=== PATIENT | male | born 1970 | race African-American/Black ===

== ENCOUNTER 2023-08-26 13:58 | Inpatient (IN) | payer MEDICARE, OTHER ==
[~2023-08-26] VITALS: Ht 177.8 cm; Wt 81.6 kg
[2023-08-26] MEDS: IV NS 0.9% 1,000 ML BAG IV ONE (15:15)
[2023-08-26] MEDS ORDERED: HYDROMORPHONE 1 MG/1 ML DISP.SYRIN ONE ×2 (15:23→17:01)
[2023-08-26] MEDS ORDERED: diphenhydrAMINE HCL 50 MG/ML VIAL ONE (15:23)
[2023-08-26] MEDS: diphenhydrAMINE HCL 50 MG/ML VIAL IV ONE (15:28)
[2023-08-26] MEDS: HYDROMORPHONE 1 MG/1 ML DISP.SYRIN IV ONE ×2 (15:30→17:05)
[2023-08-26 15:49] LABS: BASOPHILS % (AUTO) 1.7 % (0.0-2.0); EOSINOPHILS # (AUTO) 0.2 K/uL (0.0-0.7); HEMATOCRIT 32 % (39-51); HEMOGLOBIN 10.2 g/dL (13.5-17.5); LYMPHOCYTES # (AUTO) 0.7 K/uL (0.8-4.8); LYMPHOCYTES % (AUTO) 25.6 % (20.0-44.0); MEAN CORPUSCULAR HEMOGLOBIN 31 PG (26.0-33.0); MEAN CORPUSCULAR HGB CONC 32 g/dl (31.0-36.0); MEAN CORPUSCULAR VOLUME 96 fL (80-96); MONOCYTES # (AUTO) 0.3 K/uL (0.1-1.30); MONOCYTES % (AUTO) 10.4 % (2.0-12.0); NEUTROPHILS # (AUTO) 1.5 K/uL (1.8-8.9); NEUTROPHILS % (AUTO) 55.3 % (43.0-81.0); PLATELET COUNT (AUTO) 74 K/uL (150-450); RED BLOOD CELL COUNT(AUTO) 3.32 MIL/uL (4.5-6.0); RED CELL DISTRIBUTION WIDTH 15.6 % (11.5-15.0); WHITE BLOOD COUNT (AUTO) 2.8 K/uL (4.3-11.0)
[2023-08-26 16:08] LABS: ALANINE AMINOTRANSFERASE 48 U/L (12-78); ALBUMIN 3.5 g/dL (3.4-5.0); ALKALINE PHOSPHATASE 116 U/L (46-116); ASPARTATE AMINOTRANSFERASE 73 U/L (15-37); BILIRUBIN,DIRECT 0.2 mg/dL (0.0-0.2); BILIRUBIN,TOTAL 0.6 mg/dL (0.2-1.0); CALCIUM, SERUM 6.6 mg/dL (8.5-10.1); CARBON DIOXIDE 27 mmol/L (21-32); CHLORIDE 103 mmol/L (98-107); CREATININE 5.3 mg/dL (0.6-1.3); LIPASE 7 U/L (16-77); POTASSIUM 4.5 mmol/L (3.5-5.1); SODIUM SERUM 138 mmol/L (136-145); TOTAL PROTEIN, SERUM 7.5 g/dL (6.4-8.2); UREA NITROGEN, BLOOD 36 mg/dL (7-18)
[2023-08-26 16:14] LABS: GLUCOSE 453 mg/dL (74-106)
[2023-08-26] MEDS: IV NS 0.9% 250 ML BAG IV ONE (16:58)
[2023-08-26] MEDS: ONDANSETRON HCL/PF 4 MG/2 ML VIAL IV ONE (17:00)
[2023-08-26 17:01] LABS: EOSINOPHILS % (MANUAL) 7 % (0-4); LYMPHOCYTES % (MANUAL) 26 % (16-48); MONOCYTES % (MANUAL) 8 % (0-11.0); NEUTROPHILS % (MANUAL) 59 (42-76); PLATELET ESTIMATE DECREASED
[2023-08-26] MEDS ORDERED: ONDANSETRON HCL/PF 4 MG/2 ML VIAL ONE (17:01)
[2023-08-26 17:02] LABS: ANISOCYTOSIS 1+
[2023-08-26] MEDS ORDERED: KETOROLAC TROMETHAMINE 15 MG/ML VIAL ONE (18:29)
[2023-08-26] MEDS: KETOROLAC TROMETHAMINE 15 MG/ML VIAL IV ONE (18:30)
[2023-08-26] MEDS ORDERED: AMLO-212 PO (18:34)
[2023-08-26] MEDS ORDERED: MINO10TA2 PO (18:34)
[2023-08-26] MEDS ORDERED: SILD20TA2 PO (18:34)
[2023-08-26] MEDS ORDERED: PANT40TA49 PO (18:34)
[2023-08-26] MEDS ORDERED: SEVE800T8 PO (18:34)
[2023-08-26] MEDS ORDERED: ASPI-1420 PO (18:34)
[2023-08-26] MEDS ORDERED: INSU100C4 SQ (18:34)
[2023-08-26] MEDS ORDERED: LABE300T2 PO (18:34)
[2023-08-26] MEDS ORDERED: ATOR40TA PO (18:34)
[2023-08-26] MEDS ORDERED: ALBU18HF2 IH (18:34)
[2023-08-26] MEDS ORDERED: INSU100I19 SQ (18:34)
[2023-08-26] MEDS ORDERED: CLOP75TA15 PO (18:35)
[2023-08-26] MEDS ORDERED: DOCU100C36 PO (18:35)
[2023-08-26] MEDS ORDERED: PANCRELIPASE PO (18:48)
[2023-08-26 20:00] VITALS: BP 160/78; TEMP 208.8; TEMP 98.2; O2SAT 94
[2023-08-26] MEDS ORDERED: ACETAMINOPHEN 325 MG TABLET PO PRN (20:30)
[2023-08-26] MEDS ORDERED: DEXTROSE 50%-WATER 50 ML DISP.SYRIN IV PRN (20:30)
[2023-08-26] MEDS ORDERED: TRAMADOL HCL 50 MG TABLET PO PRN (20:30)
[2023-08-26] MEDS ORDERED: LACTULOSE 10 G/15 ML UDC (PYXIS) PO PRN (20:30)
[2023-08-26] MEDS ORDERED: ONDANSETRON HCL/PF 4 MG/2 ML VIAL IVP PRN (20:30)
[2023-08-26] MEDS ORDERED: BISACODYL SUPP (10 MG) 10 MG/SUPP.RECT SUPP.RECT RC PRN (20:30)
[2023-08-26] MEDS ORDERED: SORBITOL SOLUTION 70% 30 ML SOLUTION PO SCH (21:00)
[2023-08-26] MEDS: SORBITOL SOLUTION 70% 30 ML SOLUTION PO ONE (22:09)
[2023-08-26] MEDS: HYDROMORPHONE 1 MG/1 ML DISP.SYRIN IV PRN (22:10)
[2023-08-26] MEDS: *INSULIN REGULAR(HUMULIN R)HUM 100 UNIT/ML VIAL SQ PRN (22:13)
[2023-08-26] MEDS: BLOOD SUGAR DIAGNOSTIC 1 EACH STRIP IN SCH (22:13)
[2023-08-27] VITALS: BP 160/78; TEMP 208.8; O2SAT 94
[2023-08-27] MEDS: diphenhydrAMINE HCL 25 MG CAPSULE PO ONE (01:56)
[2023-08-27] MEDS: diphenhydrAMINE HCL 50 MG/ML VIAL IV ONE (02:11)
[2023-08-27 04:00] VITALS: BP 174/82; TEMP 97.7; O2SAT 100
[2023-08-27] MEDS: hydrALAZINE HCL IV 20 MG VIAL IV PRN (04:11)
[2023-08-27 08:00] VITALS: BP 164/98; TEMP 98.2; O2SAT 100
[2023-08-27] MEDS: BISACODYL SUPP (10 MG) 10 MG/SUPP.RECT SUPP.RECT RC ONE (08:24)
[2023-08-27] MEDS: DOCUSATE SODIUM 100 MG CAPSULE PO SCH (08:24)
[2023-08-27] MEDS: INSULIN REGULAR, HUMAN 100 UNIT/ML 3 ML VIAL SQ PRN (08:25)
[2023-08-27 12:00] VITALS: BP 173/89; TEMP 97.5; O2SAT 100
[2023-08-27 16:00] VITALS: BP 175/91; TEMP 98.6; O2SAT 100
[2023-08-27] MEDS: diphenhydrAMINE HCL 25 MG CAPSULE PO PRN (16:01)
[2023-08-27 20:00] VITALS: BP 158/90; TEMP 98.6; O2SAT 100
[2023-08-27] MEDS: SENNOSIDES 8.6 MG TABLET PO SCH (22:46)
[2023-08-27] MEDS: DICYCLOMINE HCL 10 MG CAPSULE PO SCH (23:47)
[2023-08-28] VITALS: BP 152/92; TEMP 98; O2SAT 99
[2023-08-28] MEDS: HYDROMORPHONE 1 MG/1 ML DISP.SYRIN IV PRN (00:20)
[2023-08-28 04:00] VITALS: BP 148/90; TEMP 98.2; O2SAT 99
[2023-08-28 08:00] VITALS: BP 160/73; TEMP 98; O2SAT 99
[2023-08-28] MEDS ORDERED: NA PHOS,M-B/NA PHOS,DI-BA 1 EA ENEMA RC PRN (09:30)
[2023-08-28] MEDS ORDERED: BISACODYL SUPP (10 MG) 10 MG/SUPP.RECT SUPP.RECT RC PRN (09:30)
[2023-08-28 12:00] VITALS: BP 176/81; TEMP 98; O2SAT 99
[2023-08-28 16:00] VITALS: BP 185/81; TEMP 98; TEMP 98.1; O2SAT 99
[2023-08-28 18:24] LABS: HEMOGLOBIN 10.4 g/dL (13.5-17.5)
[2023-08-28 18:40] LABS: CALCIUM, SERUM 7.6 mg/dL (8.5-10.1); CREATININE 3.8 mg/dL (0.6-1.3); MAGNESIUM 1.6 mg/dL (1.8-2.4); PHOSPHORUS 5.3 mg/dL (2.5-4.9); POTASSIUM 3.3 mmol/L (3.5-5.1)
[2023-08-28] MEDS ORDERED: SEVELAMER CARBONATE 800 MG TABLET PO SCH (19:00)
[2023-08-28] MEDS ORDERED: SILDENAFIL CITRATE 20 MG TABLET PO SCH (19:00)
[2023-08-28] MEDS ORDERED: LABETALOL HCL (100MG) 100 MG TABLET PO SCH (19:00)
[2023-08-28 19:49] LABS: HEMATOCRIT 32 % (39-51); MEAN CORPUSCULAR HEMOGLOBIN 31 PG (26.0-33.0); MEAN CORPUSCULAR HGB CONC 33 g/dl (31.0-36.0); MEAN CORPUSCULAR VOLUME 95 fL (80-96); PLATELET COUNT (AUTO) 79 K/uL (150-450); RED BLOOD CELL COUNT(AUTO) 3.33 MIL/uL (4.5-6.0); RED CELL DISTRIBUTION WIDTH 14.8 % (11.5-15.0); WHITE BLOOD COUNT (AUTO) 3.3 K/uL (4.3-11.0)
[2023-08-28] MEDS ORDERED: MINOXIDIL (2.5MG) 2.5 MG TABLET PO SCH (21:00)
[2023-08-28 23:06] LABS: ANISOCYTOSIS 1+; BAND % (MANUAL) 1 % (0.0-5.0); EOSINOPHILS % (MANUAL) 5 % (0-4); LYMPHOCYTES % (MANUAL) 26 % (16-48); MONOCYTES % (MANUAL) 9 % (0-11.0); NEUTROPHILS % (MANUAL) 59 (42-76); PLATELET ESTIMATE DECREASED
[2023-08-28 23:07] LABS: ROULEAUX 1+
[2023-08-29] MEDS ORDERED: ATORVASTATIN 40 MG TABLET PO SCH (09:00)
[2023-08-29 12:07] LABS: HEPATITIS B SURFACE AB Non Reactive (.)
== END 2023-08-29 00:24 | disposition left against medical advice (07) | DRG 640 ==
LOC: ER 14:00 → TELE1 18:59
PROVIDERS: ADMIT Nurse Practitioner Acute Care; ATTEND Nurse Practitioner Acute Care
PROC: 5A1D70Z Performance of Urinary Filtration, Intermittent, Less than 6 Hours Per Day (ICD-10-PCS; principal; 2023-08-27)
DX: E87.70 Fluid overload, unspecified (principal); N18.6 End stage renal disease; D61.818 Other pancytopenia; K86.1 Other chronic pancreatitis; K86.2 Cyst of pancreas; K86.0 Alcohol-induced chronic pancreatitis; R18.8 Other ascites; I12.0 Hypertensive chronic kidney disease with stage 5 chronic kidney disease or end stage renal disease; E87.5 Hyperkalemia; I16.0 Hypertensive urgency; K59.09 Other constipation; E11.22 Type 2 diabetes mellitus with diabetic chronic kidney disease; E11.65 Type 2 diabetes mellitus with hyperglycemia; E78.5 Hyperlipidemia, unspecified; I25.10 Atherosclerotic heart disease of native coronary artery without angina pectoris; Z86.73 Personal history of transient ischemic attack (TIA), and cerebral infarction without residual deficits; D63.8 Anemia in other chronic diseases classified elsewhere; I25.2 Old myocardial infarction; Z79.4 Long term (current) use of insulin; Z95.5 Presence of coronary angioplasty implant and graft; Z99.2 Dependence on renal dialysis; F10.10 Alcohol abuse, uncomplicated; N25.0 Renal osteodystrophy; Z91.199 Patient's noncompliance with other medical treatment and regimen due to unspecified reason
CPT/HCPCS: 36415; 71045-TC; 80048-TC; 80076-TC; 82010-TC; 82962-TC; 83690-TC; 83735-TC; 84100-TC; 84484-TC; 85025-TC; 86706; 87340; 90935-TC; G0378; J0360; J1170; J1200; J1815; J1885; J2405; J7050; Q0163